=== PATIENT | female | born 1960 | race Caucasian/White ===

== ENCOUNTER 2017-09-28 21:40 | Emergency (ER) | payer BC ==
[~2017-09-28] VITALS: Ht 149.9 cm; Wt 58.2 kg
[2017-09-28 22:12] LABS: HEMATOCRIT 39.1 % (37.0-47.0); IMMATURE GRANULOCYTES 0.4 % (0.0-1.0); MEAN CELL VOLUME 94.7 fL CALC (80.0-100.0); MEAN CORPUSCULAR HGB 31.5 pG CALC (26.0-32.0); MEAN CORPUSCULAR HGB CONC 33.2 g/L CALC (32.0-36.0); NEUT# 5.47 thou/uL (2.00-7.15); RED BLOOD COUNT 4.13 mill/uL (4.20-5.60)
[2017-09-28] MEDS ORDERED: ASPIRIN81 MG PO (23:06)
[2017-09-28] MEDS ORDERED: METFORMIN500 MG PO (23:06)
[2017-09-28] MEDS ORDERED: ATORVASTATIN CA10 MG PO (23:07)
[2017-09-28] MEDS ORDERED: LOSARTAN POT25 MG PO (23:07)
[2017-09-28] MEDS ORDERED: METOPROL TAR25 MG PO (23:07)
[2017-09-28 23:18] LABS: ALBUMIN 4.3 g/dL (3.2-5.0); ALKALINE PHOSPHATASE 72 u/l (38-126); ANION GAP 17 (6-22 (CALC)); BILIRUBIN, TOTAL 2.5 mg/dL (0.0-1.4); BUN 21 mg/dL (7-17); BUN/CREATININE RATIO 27 (12-20 (CALC)); CARBON DIOXIDE 25 mmol/l (22-30); CHLORIDE 102 mmol/l (95-108); CREATININE 0.8 mg/dL (0.5-1.0); GFR > 60 ML/MIN (>=60 (CALC)); GFR FOR AFR.AMER. > 60 ML/MIN (>=60 (CALC)); POTASSIUM 3.5 mmol/l (3.5-5.1); SGOT/AST 39 u/l (14-36); SGPT/ALT 65 u/l (9-52); SODIUM 140 mmol/l (137-146)
[2017-09-28] MEDS ORDERED: TORADOL PO (23:43)
[2017-09-29 00:19] VITALS: BP 140/65
== END 2017-09-29 00:10 | disposition home or self-care (01) | DRG 313 ==
LOC: ED 21:40
PROVIDERS: Family Medicine
DX: R07.89 Other chest pain (principal); F41.9 Anxiety disorder, unspecified; E11.9 Type 2 diabetes mellitus without complications; E78.00 Pure hypercholesterolemia, unspecified; I10 Essential (primary) hypertension
CPT/HCPCS: J2060